=== PATIENT | female | born 1980 | race Two or more races ===

== ENCOUNTER 2025-09-07 14:37 | Emergency (ER) | payer MEDICAID, SELFPAY ==
[2025-09-07 14:41] VITALS: BP 154/92; PULSE 80; RESP 18; TEMP 36.7; O2SAT 99
--- NOTE | 2025-09-07 14:54 | PD.EDADULT ---
ED General RME/HPI General Chief complaint: General Adult/Misc Complain Stated complaint: WEAKNESS Time Seen by Provider: 09/07/25 14:53 Arrival date/time: 09/07/25 14:37 CC: Hand cramping and chest pressure/tightness, after finding out she had elevated blood pressure HPI patient presents to the ER via EMS reports stable vital signs after the patient became very anxious after taking a home blood pressure test that showed her systolic blood pressure greater than 200. The patient has had a gastric sleeve, and since then has gone off her antihypertensive secondary to weight loss. The patient then became anxious, and began to have hand cramping and the chest pressure increased. Patient denies painful urination bloody urination shortness of breath or difficulty breathing at this time patient is following all commands with prompting. Patient is answering all questions appropriately. Related Data Home Medications ?Medication ?Instructions ?Recorded ?Confirmed Labetalol Hcl * (TRANDATE *) 100 mg PO TID #0 tabs 01/26/16 Vitamin * 1 tab PO QDAY #0 tabs 01/26/16 Previous Rx's ?Medication ?Instructions ?Recorded Cyclobenzaprine * (FLEXERIL *) 10 mg PO Q8HR PRN BACK SPASMS #30 02/13/16 tabs Hydrocodone/Acetaminophen * (NORCO 1 tab PO Q4H PRN ABDOMINAL PAIN 02/13/16 5/325 *) #30 tabs nitrofurantoin 100 mg PO Q12H 7 days #14 caps 09/07/25 monohydrate/macrocrystals 100 mg capsule (Macrobid) Allergies Allergy/AdvReac Type Severity Reaction Status Date / Time NKA* Allergy Uncoded 02/12/16 13:40 Review of Systems Review of Systems Narrative Review of Systems: GEN: No fever, no chills, no weight loss EYES: No discharge, no visual changes, no pain HEENT: No ear pain, no congestion, no sore throat PULM: No shortness of breath, no cough, no congestion CV: No chest pain, no dyspnea on exertion, no palpitations GI: No nausea, no vomiting, no diarrhea, no pain, no constipation : No frequency, no urgency, no dysuria MUSC/SKEL: No joint pain, no back pain SKIN: No rash PSYCH: No hallucinations, no depression HEME/LYMPH: No easy bleeding or bruising tendencies NEURO: No weakness, no headache Past Medical History Past Medical History CARDIAC: Negative Congestive Heart Failure RESPIRATORY: Negative Chronic Obstructive Pulmonary Disease (COPD) GENITOURINARY: Negative Renal Disease ENDOCRINE: Negative Diabetes Mellitus Type 1 or Diabetes Mellitus Type 2 Surgical History SURGICAL: Positive Abdominal Surgery (hernia) and Gastric Bypass Surgery Social History SMOKING STATUS: Never smoker ED Exam Narrative Physical exam: [General: Obese anxious, but not in any acute distress Head normocephalic HEENT: Within acceptable limits Neck is supple nontender Chest equal chest rise nontender to palpation Respiratory: Clear to auscultation no wheezes crackles or rubs CV: Rate rhythm is regular no murmurs rubs or clicks Abdomen is distended secondary to body habitus soft nontender no masses positive bowel sounds all 4 quadrants Back: No CVA tenderness no spinous process tenderness from cervical spine thoracic and lumbar spine Skin: Intact no petechiae rash induration ulceration or crepitus Extremities: Patient is clenching fist and expanding fingers without complication upon command. Moving all extremities against resistance cap refill less than 2 seconds neurosensory intact Neuro: Awake alert oriented x3 Glascow coma 15 no focal deficits] Course Quality Measures none Orders Category Date Time Status CBC Stat Lab 09/07/25 15:05 Completed CMP [Comprehensive Metabolic Panel] Stat Lab 09/07/25 15:05 Completed Drug Screen,Urine Stat Lab 09/07/25 15:30 Completed HCG Qualitative,Urine Stat Lab 09/07/25 15:30 Completed Urinalysis Stat Lab 09/07/25 15:30 Completed Vital Signs Vital signs: Vital Signs Temperature 98.1 F 09/07/25 14:41 Pulse Rate 80 09/07/25 14:41 Respiratory Rate 18 09/07/25 14:41 Blood Pressure 154/92 H 09/07/25 14:41 Pulse Oximetry (%) 99 09/07/25 14:41 Oxygen Delivery Method Room Air 09/07/25 14:41 Discharge Plan Plan Patient Disposition: HOME (Self Care) Patient condition on transfer: Stable Prescriptions/Referrals Prescriptions/Med Rec: New nitrofurantoin monohyd/m-cryst [Macrobid] 100 mg capsule 100 mg PO Q12H 7 Days Qty: 14 0RF Rx Instructions: must administer with a meal/food No Action Vitamin * 1 EACH tablet 1 tab PO QDAY Qty: 0 Labetalol Hcl * (TRANDATE *) 100 MG tablet 100 mg PO TID Qty: 0 Cyclobenzaprine * (FLEXERIL *) 10 MG tablet 10 mg PO Q8HR PRN (Reason: BACK SPASMS) Qty: 30 0RF Hydrocodone/Acetaminophen * (NORCO 5/325 *) 1 TAB tablet 1 tab PO Q4H PRN (Reason: ABDOMINAL PAIN) Qty: 30 0RF Referrals: Josie Yoder [Primary Care Provider] - In 1 week Problem List Clinical Impression: Panic attack, Urinary tract infection Patient/Caregiver Discharge Instructions Print Language: Georgian Stand Alone Forms: [employer] Award Info., Patient Portal Info Letter MDM Clinical Information Provided by: patient and EMS Medical Records reviewed [facility] and EMS Meds/Rx considered, not ordered None Labs/Rad/Tests considered, not ordered None Chronic Illness/Social Conditions Explain: Obesity anxiety EKG EKG not done Labs Labs: interpreted by nv Lab(s) Interpretation(s): CBC shows a leukocytosis of 14.4 no major shift, no anemia, thrombocytopenia CMP shows no significant electrolyte imbalances renal impairment transaminitis or T. bili elevation. Urine is turbid, 4+ bacteria no leukocyte esterase no squamous epithelial urine nitrite positive. UDS is negative
[2025-09-07 15:09] VITALS: BMI 33.6
[2025-09-07 15:15] LABS: Basophils # (Auto) 0.1 Thou/mm3 (0.0-0.2); Basophils % (Auto) 1 % (0-2.5); Eosinophils # (Auto) 0.1 Thou/mm3 (0.0-0.5); Eosinophils % (Auto) 1 % (0-10); Hematocrit 37.8 % (36.0-46.0); Hemoglobin 12.7 g/dL (12.0-16.0); Immature Granulocytes Auto 0.05 Thou/mm3 (0.00-0.00); Lymphocytes # (Auto) 2.5 Thou/mm3 (1.0-4.8); Lymphocytes % (Auto) 17 % (10-50); Mean Corpuscular HGB Conc 33.6 g/dl (31.0-37.0); Mean Corpuscular Hemoglobin 28.2 pg (25.0-35.0); Mean Corpuscular Volume 84 fL (80-100); Monocytes # (Auto) 0.9 Thou/mm3 (0.0-0.8); Monocytes % (Auto) 6 % (0-12); Neutrophils # (Auto) 10.8 Thou/mm3 (1.8-7.7); Neutrophils % (Auto) 75 % (37-80); Nucleated Red Blood Cell # 0.00 Thou/mm3 (0.00-0.00); Nucleated Red Blood Cell % 0 /100 WBC (0); Platelet Count 319 Thou/mm3 (140-440); RDW Standard Deviation 44.5 fL (36.4-46.3); Red Blood Count 4.51 Miln/mm3 (4.00-5.20); White Blood Count 14.4 Thou/mm3 (3.6-11.0)
[2025-09-07 15:37] LABS: Albumin, Serum 4.2 gm/dL (3.5-5.0); Albumin/Globulin Ratio 1.6 (1.2-2.2); Alkaline Phosphatase 78 U/L (46-116); Anion Gap 10 (7-16); Aspartate Amino Transferase 16 U/L (0-34); BUN/Creatinine Ratio 23 Ratio (12-20); Bilirubin,Total 1.0 mg/dL (0.3-1.2); Blood Urea Nitrogen 16 mg/dL (9-23); Calcium 9.0 mg/dL (8.3-10.6); Calcium (Corrected) 9.0 mg/dL (8.5-10.1); Carbon Dioxide 26.7 mMol/L (20.0-31.0); Chloride 107 mMol/L (98-107); Creatinine (Component) 0.7 mg/dL (0.6-1.3); Estimated Creatinine Clearance 107.8 mL/min (>60); Globulin 2.6 gm/dL (2.3-3.5); Glucose 106 mg/dL (74-106); Osmolality,Calculated 288 (275-295); Potassium 3.4 mMol/L (3.4-5.1); Sodium 144 mMol/L (136-145); Total Protein 6.8 gm/dL (5.7-8.2); eGFR > 60 See Note
[2025-09-07 15:46] LABS: Alanine Aminotransferase < 7 U/L (10-49)
[2025-09-07 15:46] LABS: Collection Type, Urine Clean Catch
[2025-09-07 16:00] LABS: Bacteria,Urine 4+; Bilirubin,Urine Negative (Negative); Blood,Urine Negative (Negative); Clarity,Urine Turbid (Clear/Hazy); Color,Urine Yellow (Lt Yel-Yel); Glucose, Urine Negative (Negative); Ketones,Urine Negative (Negative); Leukocyte Esterase,Urine Negative (Negative); Nitrite,Urine Positive (Negative); PH,Urine 6.0 (5.0-7.0); Protein,Urine Trace (Neg - Trace); RBC,Urine 2 /hpf (0-3); Specific Gravity,Urine 1.028 (1.001-1.035); Squamous Epithelial Cell,Urine 3 /hpf (0-5); Urobilinogen,Urine 3.0 mg/dL (0.0-1.0); WBC,Urine 1 /hpf (0-5)
[2025-09-07 16:03] LABS: Amphetamine/Methamp Scrn,U Negative (Negative); Barbiturate Screen,Urine Negative (Negative); Benzodiazepines Screen,Urine Negative (Negative); Benzoylecgonine Screen, Ur Negative (Negative); Fentanyl Screen,Urine Negative (Negative); HCG Qualitative,Urine Negative; Opiate Screen,Urine Negative (Negative); THC Screen,Urine Negative (Negative)
[2025-09-07 16:18] VITALS: BP 165/96; PULSE 81; RESP 18; TEMP 36.6; O2SAT 100
--- NOTE | 2025-09-07 16:48 | PC.NURSE ---
PROVIDER MADE AWARE OF PATIENT CONCERNS WITH HEAD PRESSURE AND TIGHTNESS IN THE CHEST AT TIME OF DISCHARGE. PROVIDER OK WITH DISCHARGING PATIENT AT THIS TIME.
[2025-09-07 16:49] VITALS: BP 134/82; PULSE 88; RESP 18; O2SAT 96
== END 2025-09-07 16:52 | disposition home or self-care (01) ==
PROVIDERS: Registered Nurse General Practice; Emergency Provider Emergency Medicine; PCP Nurse Practitioner Family
DX: N39.0 Urinary tract infection, site not specified (principal); F41.0 Panic disorder [episodic paroxysmal anxiety]
CPT/HCPCS: 36415; 80053; 80307; 81001; 81025; 85025; 99282